=== PATIENT | male | born 1940 | race Caucasian/White ===

== ENCOUNTER 2017-09-15 12:28 | Outpatient (CLI) | payer MEDICARE, BC ==
--- NOTE | 2017-09-15 14:11 | RAD ---
LUMBAR SPINE FOUR VIEW RADIOGRAPH SERIES: INDICATIONS: Gait abnormality. FINDINGS: There is moderate multilevel degenerative change throughout the lumbar spine. No evidence of isa felicia fracture. Flexion and extension positioning performed without obvious translational motion. Th ere is grade 1 spondylolisthesis at L5-S1. There is trace retrolisthesis of L1-L2 present. IMPRESSION: 1. 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 2. No obvious translational motion. There are mild multilevel listhesis, as discussed above. POS: [facility]
--- NOTE | 2017-09-15 14:26 | RAD ---
CERVICAL SPINE MULTIPLE VIEWS: HISTORY: Gait abnormality. FINDINGS: There are postop changes of central spinal fusion with plate and screws at C6-7 level in good positio n and alignment. No change in alignment is seen on flexion or extension. Degenerative changes are p resent. No acute fracture or subluxation or bony destruction is identified. POS: [facility]
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
--- NOTE | 2017-09-15 15:57 | MRI ---
MRI OF BRAIN WITH AND WITHOUT CONTRAST: INDICATION: Gait abnormality. FINDINGS: Ventricular system is age-appropriate in size. There is no acute territorial infarction, mass effect , or midline shift. No pathologic intraaxial enhancement. There is expansile abnormality of the rig ht parietal calvarium with internal signal alteration which is mixed in signal and reveals evidence o f partial enhancement. This does correspond to a lucent lesion with surrounding sclerosis on prior C T 12/01/13. There is remote lacunar infarction, multifocal, within the right cerebellar hemisphere. Moderate chr onic microvascular ischemic disease is present. Otherwise, there is no evidence of a significant intracranial abnormality. IMPRESSION: 1. No acute intracranial abnormality. 2. Moderate chronic microvascular ischemic disease and remote lacunar infarctions. 3. 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 POS: [facility]
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
== END 2017-09-15 12:29 | disposition home or self-care (01) ==
LOC: TBSIIMAG 12:28
PROVIDERS: ATTEND Surgery
DX: R26.9 Unspecified abnormalities of gait and mobility (principal); M47.896 Other spondylosis, lumbar region; Z98.0 Intestinal bypass and anastomosis status; I67.82 Cerebral ischemia; G46.7 Other lacunar syndromes
CPT/HCPCS: 70553; 72050; 72110; 72146; 72148; 72156; 82565